=== PATIENT | female | born 1965 | race Caucasian/White ===

== ENCOUNTER 2017-02-09 22:13 | Emergency (ER) | payer MEDICAID ==
[2017-02-09 22:19] VITALS: BP 219/71; PULSE 53; RESP 16; TEMP 97.9; O2SAT 100
--- NOTE | 2017-02-09 23:00 | ED PDOC ---
HPI: General Adult Time Seen by Provider: 02/09/17 22:40 Chief Complaint (Nursing): Headache Chief Complaint (Provider): headahce, body aches, diarrhea, History Per: Patient History/Exam Limitations: no limitations Additional Complaint(s): 51yo F in ED for 1 week of diarrhea, body aches, headache congestion subjective fever chills. pt states he was seen at her pmd last week Rx abx, but not effective. denies foreign travel or rash denies blood diarrhea or productive cough. Past Medical History Reviewed: Historical Data, Nursing Documentation, Vital Signs Vital Signs: Last Vital Signs Temp 97.9 F 02/09/17 22:15 Pulse 53 L 02/09/17 22:15 Resp 16 02/09/17 22:15 BP 219/71 H 02/09/17 22:15 Pulse Ox 100 02/09/17 23:01 - Medical History PMH: Asthma, Gastritis, HTN, Hypothyroidism - Surgical History Surgical History: Cholecystectomy - Family History Family History: States: Diabetes, Hypertension - Home Medications Home Medications: Ambulatory Orders Medication Instructions Recorded Atenolol [Tenormin] 50 mg PO DAILY 08/22/15 Levothyroxine [Synthroid] 0.088 mg PO DAILY 08/22/15 Guaifenesin [Mucinex] 1,200 mg PO BID #14 ter 02/09/17 - Allergies Allergies/Adverse Reactions: Allergies Allergy/AdvReac Type Severity Reaction Status Date / Time No Known Allergies Allergy Verified 02/09/17 22:15 Review of Systems ROS Statement: Except As Marked, All Systems Reviewed And Found Negative Constitutional: Positive for: Fever, Chills ENT: Positive for: Nose Discharge, Nose Congestion Respiratory: Positive for: Cough Gastrointestinal: Positive for: Abdominal Pain, Diarrhea. Negative for: Nausea , Vomiting Physical Exam - Reviewed Nursing Documentation Reviewed: Yes Vital Signs Reviewed: Yes - Physical Exam Appears: Positive for: Non-toxic, No Acute Distress Head Exam: Positive for: ATRAUMATIC, NORMAL INSPECTION, NORMOCEPHALIC Skin: Positive for: Normal Color, Warm, DRY Eye Exam: Positive for: EOMI, Normal appearance, PERRL ENT: Positive for: Normal ENT Inspection, TM Is/Are (NAD), Sinus Pain/Drainage. Negative for: Nasal Congestion, Pharyngeal Erythema, Tonsillar Exudate Neck: Positive for: Normal, Painless ROM Cardiovascular/Chest: Positive for: Regular Rate, Rhythm Respiratory: Positive for: CNT, Normal Breath Sounds Gastrointestinal/Abdominal: Positive for: Normal Exam, Bowel Sounds, Soft. Negative for: Tenderness, Organomegaly, Mass, Distended, Guarding Back: Positive for: Normal Inspection Extremity: Positive for: Normal ROM Neurologic/Psych: Positive for: Alert, Oriented - ECG O2 Sat by Pulse Oximetry: 100 - Progress ED Course And Treament: influ A/B testing impression: viral Medical Decision Making Medical Decision Making: pt with negative flu testing. pt most likely with viral process, however advised to continue supportive care. Rx mucinex for congestion. advised that abx use for viral illness will not help and may increased resistance pt understands. Disposition - Clinical Impression Clinical Impression: Viral syndrome - Patient ED Disposition Is Patient to be Admitted: No Counseled Patient/Family Regarding: Studies Performed, Diagnosis, Need For Followup, Rx Given - Disposition Disposition: Routine/Home Disposition Time: 23:03 Condition: STABLE Prescriptions: Guaifenesin [Mucinex] 1,200 mg PO BID #14 ter Instructions: Viral Syndrome (ED)
== END 2017-02-09 23:18 | disposition home or self-care (01) ==
LOC: H.ER 22:13
DX: B34.9 Viral infection, unspecified (principal); E03.9 Hypothyroidism, unspecified; I10 Essential (primary) hypertension

== ENCOUNTER 2017-07-12 00:12 | Emergency (ER) | payer MEDICAID ==
[2017-07-12 00:47] VITALS: BP 157/93; PULSE 54; RESP 18; TEMP 98.6; O2SAT 98
--- NOTE | 2017-07-12 01:01 | ED PDOC ---
Upper Extremity Pain/Injury Time Seen by Provider: 07/12/17 00:48 Chief Complaint (Nursing): Upper Extremity Problem/Injury Chief Complaint (Provider): Left shoulder pain History Per: Patient Additional Complaint(s): 52-year-old right hand dominant female presents to emergency department with left shoulder pain for 1 month. Patient states she's been taking ibuprofen and muscle relaxer but pain has not improved. She denies any associated chest pain. Pain got worse today prompting ED visit this evening. The patient denies any fever or chills. She does not recall any injury. Past Medical History Reviewed: Historical Data, Nursing Documentation, Vital Signs Vital Signs: Last Vital Signs Temp 98.6 F 07/12/17 00:31 Pulse 54 L 07/12/17 00:31 Resp 18 07/12/17 00:31 BP 157/93 H 07/12/17 00:31 Pulse Ox 98 07/12/17 00:31 - Medical History PMH: Asthma, Gastritis, HTN, Hypothyroidism - Surgical History Surgical History: Cholecystectomy - Family History Family History: States: Diabetes, Hypertension - Living Arrangements Living Arrangements: With Family - Social History Current smoker - smoking cessation education provided: No Alcohol: None Drugs: Denies - Home Medications Home Medications: Ambulatory Orders Medication Instructions Recorded Atenolol [Tenormin] 50 mg PO DAILY 08/22/15 Levothyroxine [Synthroid] 0.088 mg PO DAILY 08/22/15 Dextromethorphan HBr [Cough 15 mg PO BID #15 capsule 02/09/17 Control] Guaifenesin [Mucinex] 1,200 mg PO BID #14 ter 02/09/17 Metaxalone [Skelaxin] 800 mg PO TID PRN #15 tablet 07/12/17 Naproxen [Naprosyn] 500 mg PO BID #20 tab 07/12/17 traMADol [Ultram] 50 mg PO TID PRN #15 tab 07/12/17 - Allergies Allergies/Adverse Reactions: Allergies Allergy/AdvReac Type Severity Reaction Status Date / Time No Known Allergies Allergy Verified 02/09/17 22:15 Review of Systems ROS Statement: Except As Marked, All Systems Reviewed And Found Negative Constitutional: Negative for: Fever Cardiovascular: Negative for: Chest Pain Respiratory: Negative for: Cough Gastrointestinal: Negative for: Nausea, Vomiting Musculoskeletal: Positive for: Other (left shoulder pain x 1 month) Physical Exam - Reviewed Nursing Documentation Reviewed: Yes Vital Signs Reviewed: Yes - Physical Exam Appears: Positive for: Well Skin: Negative for: Rash Eye Exam: Positive for: Normal appearance, EOMI, PERRL Neck: Positive for: Normal, Painless ROM Cardiovascular/Chest: Positive for: Regular Rate, Rhythm Respiratory: Positive for: Normal Breath Sounds Back: Negative for: Vertebral Tenderness Extremity: Positive for: Other (Diffuse tenderness to left anterior shoulder, full range of motion with pain, 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 Sling applied to left arm. Patient was provided with ortho referral. Disposition - Clinical Impression Clinical Impression: Shoulder pain - Patient ED Disposition Is Patient to be Admitted: No Counseled Patient/Family Regarding: Studies Performed, Diagnosis, Need For Followup, Rx Given - Disposition Referrals: Selvin Marc MD [Family Provider] - Elliott Prince MD [Medical Doctor] - Disposition: Routine/Home Disposition Time: 02:29 Condition: STABLE Additional Instructions: Take rx meds as directed as needed for pain. Follow up with primary care doctor or orthopedist. Prescriptions: Metaxalone [Skelaxin] 800 mg PO TID PRN #15 tablet PRN Reason: Muscle Pain Naproxen [Naprosyn] 500 mg PO BID #20 tab traMADol [Ultram] 50 mg PO TID PRN #15 tab PRN Reason: Pain, Moderate (4-7) Instructions: Shoulder Pain (ED) Forms: [employer] (Jamaican)
--- NOTE | 2017-07-12 09:24 | RAD ---
PROCEDURE: Radiographs of the Left Shoulder HISTORY: pain for 1 month COMPARISON: No prior. FINDINGS: BONES: Normal. No fracture. JOINTS: Normal. Glenohumeral and acromioclavicular joints preserved. No osteoarthritis. SOFT TISSUES: Normal. OTHER FINDINGS: None. IMPRESSION: No evidence of acute displaced fracture nor dislocation.
--- NOTE | 2017-07-12 20:52 | CARD ---
APPROVED REPORT EKG Measurement Heart [id number] ID [id number] <Conclusion> Sinus bradycardia Otherwise normal ECG
== END 2017-07-12 02:59 | disposition home or self-care (01) ==
LOC: H.ER 00:12
DX: M25.512 Pain in left shoulder (principal)
CPT/HCPCS: 73030; 93005; 96372; 99284; J1885

== ENCOUNTER 2017-12-25 19:41 | Emergency (ER) | payer MEDICAID ==
[2017-12-25] MEDS ORDERED: Albuterol-Ipratrop 3 mg / 0.5 (3 ml) UD ONE (20:38)
[2017-12-25] MEDS: Albuterol-Ipratrop 3 mg / 0.5 (3 ml) UD IH SCH (20:55)
[2017-12-25 21:10] VITALS: RESP 20
--- NOTE | 2017-12-25 21:34 | ED PDOC ---
HPI: General Adult Time Seen by Provider: 12/25/17 20:18 Chief Complaint (Nursing): Flu-like Symptoms History Per: Patient Onset/Duration Of Symptoms: Days Have you had recent travel within the past 21 days to any of the following countries: [place], [place], [place] or [place]?: No Current Symptoms Are (Timing): Still Present Additional Complaint(s): 52 yo F w/ PMH of HTN and asthma, complains of cough productive, beginning three days ago and associated with body aches, and wheezing. Of note, she has a history of Asthma and has been using her inhaler at home. Patient was seen by her PMD today, and Rx Keflex, but wanted to seek further evaluation here due to continued symptoms. Otherwise: (-) fever, (-) chills, (-) chest pain, (-) dyspnea, (-) hemoptysis, (-) upper back pain, (-) travel, (-) recent prolonged immobility. Past Medical History Vital Signs: Last Vital Signs Temp 98 F 12/25/17 21:09 Pulse 58 L 12/25/17 21:09 Resp 20 12/25/17 21:09 BP 134/80 12/25/17 21:09 Pulse Ox 100 12/25/17 21:47 - Medical History PMH: Asthma, Gastritis, HTN, Hypothyroidism - Surgical History Surgical History: Cholecystectomy - Family History Family History: States: Diabetes, Hypertension - Home Medications Home Medications: Ambulatory Orders Medication Instructions Recorded Atenolol [Tenormin] 50 mg PO DAILY 08/22/15 Levothyroxine [Synthroid] 0.088 mg PO DAILY 08/22/15 Dextromethorphan HBr [Cough 15 mg PO BID #15 capsule 02/09/17 Control] Guaifenesin [Mucinex] 1,200 mg PO BID #14 ter 02/09/17 Metaxalone [Skelaxin] 800 mg PO TID PRN #15 tablet 07/12/17 Naproxen [Naprosyn] 500 mg PO BID #20 tab 07/12/17 traMADol [Ultram] 50 mg PO TID PRN #15 tab 07/12/17 Albuterol 0.083% [Albuterol 3 ml IH Q4 #100 neb 12/25/17 Sulfate 3 Ml] Azithromycin [Z-Thanh] 250 mg PO DAILY #6 tab 12/25/17 Guaifenesin 400 mg PO QID #20 tablet 12/25/17 predniSONE [predniSONE Tab] 40 mg PO DAILY #8 tab 12/25/17 - Allergies Allergies/Adverse Reactions: Allergies Allergy/AdvReac Type Severity Reaction Status Date / Time No Known Allergies Allergy Verified 02/09/17 22:15 Review of Systems Constitutional: Negative for: Fever Respiratory: Positive for: Cough, Wheezing Musculoskeletal: Positive for: Other (bodyaches) Physical Exam - Physical Exam Comments: GENERAL APPEARANCE : Patient is awake, alert, oriented x3, in no acute distress. Speaking in full sentences. SKIN: Warm, dry; (-) cyanosis. EYES: (-) conjunctival pallor. ENMT: Mucous membranes moist. Airway patent: (-) stridor. Pharynx: (-) swelling, (-) erythema, (-) exudate. NECK: (-) tenderness, (-) stiffness, (-) lymphadenopathy. CHEST AND RESPIRATORY: (+) scattered rhonchi, (-) rales, (+) b/l expiratory wheezes, (-) pleural rub; breath sounds equal bilaterally. HEART AND CARDIOVASCULAR: (-) irregularity; (-) murmur, (-) gallop. ABDOMEN AND GI: Soft; (-) tenderness. EXTREMITIES: (-) deformity; (-) edema. NEURO AND PSYCH: Mental status as above. Cranial nerves grossly intact; strength symmetric. - ECG O2 Sat by Pulse Oximetry: 100 (RA) Pulse Ox Interpretation: Normal Medical Decision Making Medical Decision Making: CXR : NAD, as read by PA On re-evaluation, patient reports improvement of symptoms, denies any chest pain or SOB at this time. On exam, patient remains AAOx3, in no acute distress. Lungs clear to auscultation, cardiac RRR. Diagnostic results d/w the patient in great detail. Diagnosis of bronchitis and asthma d/w the patient. Based on history, exam and diagnostic results, plan will be for outpatient follow up. Patient instructed to follow-up with pmd in 1-2 days without fail. Advised to take medication as prescribed. Return to the emergency room at any time for any new or worsening symptoms. Patient states she fully agrees with and understands discharge instructions. States that she agrees with the plan and disposition. Verbalized and repeated discharge instructions and plan. I have given the patient opportunity to ask any additional questions. Scribe Attestation: Documented by Colette Stewart, acting as a scribe for Mary Jo Puente PA-C. Provider Scribe Attestation: All medical record entries made by the Scribe were at my direction and personally dictated by me. I have reviewed the chart and agree that the record accurately reflects my personal performance of the history, physical exam, medical decision making, and the department course for this patient. I have also personally directed, reviewed, and agree with the discharge instructions and disposition. Disposition - Clinical Impression Clinical Impression: Asthma exacerbation, Bronchitis - Patient ED Disposition Is Patient to be Admitted: No Counseled Patient/Family Regarding: Studies Performed, Diagnosis, Need For Followup, Rx Given - Disposition Disposition: Routine/Home Disposition Time: 22:00 Condition: IMPROVED Additional Instructions: Thank you for letting us take care of you today. You were treated for bronchitis and asthma. The emergency medical care you received today was directed at your acute symptoms. If you were prescribed any medication, please fill it and take as directed. It may take several days for your symptoms to resolve. Return to the Emergency Department if your symptoms worsen, do not improve, or if you have any other problems. Please contact your doctor in 2 days for re-evaluation and follow up. Bring any paperwork you were given at discharge with you along with any medications you are taking to your follow up visit. Our treatment cannot replace ongoing medical care by a primary care provider (PCP) outside of the emergency department. Thank you for allowing the [facility] team to be part of your care today. If you had an X-Ray : A Radiologist will review the ED reading if any change in treatment is needed we will contact you. Prescriptions: Albuterol 0.083% [Albuterol Sulfate 3 Ml] 3 ml IH Q4 #100 neb Azithromycin [Z-Thanh] 250 mg PO DAILY #6 tab Guaifenesin 400 mg PO QID #20 tablet predniSONE [predniSONE Tab] 40 mg PO DAILY #8 tab Instructions: Acute Bronchitis, Asthma, Adult (DC) Forms: [employer] (Turkish) - PA / INTELLIGENCE CHIEF / Resident Statement MD/DO has reviewed & agrees with the documentation as recorded.
[2017-12-25 22:30] VITALS: BP 130/70; PULSE 65; TEMP 98; O2SAT 97
--- NOTE | 2017-12-26 08:50 | RAD ---
HISTORY: cough COMPARISON: Chest radiograph dated 11/03/2014. TECHNIQUE: Chest PA and lateral FINDINGS: LUNGS: No active pulmonary disease. PLEURA: No significant pleural effusion identified. No pneumothorax apparent. CARDIOVASCULAR: Normal. OSSEOUS STRUCTURES: Unchanged. VISUALIZED UPPER ABDOMEN: Normal. OTHER FINDINGS: None. IMPRESSION: No active disease.
== END 2017-12-25 22:30 | disposition home or self-care (01) ==
LOC: H.ER 19:41
DX: J45.901 Unspecified asthma with (acute) exacerbation (principal); J40 Bronchitis, not specified as acute or chronic; I10 Essential (primary) hypertension; E03.9 Hypothyroidism, unspecified

== ENCOUNTER 2018-03-10 09:38 | Observation (INO) | payer MEDICAID, OTHER ==
[2018-03-10] MEDS ORDERED: Albuterol-Ipratrop 3 mg / 0.5 (3 ml) UD INH STA (10:27)
--- NOTE | 2018-03-10 11:18 | RAD ---
HISTORY: SOB COMPARISON: Chest radiograph dated 12/25/2017 TECHNIQUE: Chest PA and lateral FINDINGS: LUNGS: No active pulmonary disease. PLEURA: No significant pleural effusion identified. No pneumothorax apparent. CARDIOVASCULAR: Normal. OSSEOUS STRUCTURES: Unchanged. VISUALIZED UPPER ABDOMEN: Right upper quadrant surgical clips. OTHER FINDINGS: None. IMPRESSION: No active disease.
[2018-03-10] MEDS ORDERED: Albuterol-Ipratrop 3 mg / 0.5 (3 ml) UD ONE (11:37)
[2018-03-10 12:04] LABS: BASO # 0.1 K/uL (0.0-0.2); BASO % 0.7 % (0.0-2.0); EOS # 0.2 K/uL (0.0-0.7); EOS % 2.2 % (0.0-4.0); HEMOGLOBIN 14.9 g/dL (12.0-16.0); LYMPH # 1.2 K/uL (1.0-4.3); LYMPH % 13.7 % (20.0-40.0); MEAN CELL VOLUME 83.4 fl (81.0-99.0); MEAN CORPUSCULAR HEMOGLOBIN 29.1 pg (27.0-31.0); MEAN CORPUSCULAR HGB CONC 34.9 g/dL (33.0-37.0); MEAN PLATELET VOLUME 7.5 fl (7.2-11.7); MONO # 0.8 K/uL (0.0-0.8); NEUT # 6.3 K/uL (1.8-7.0); NEUT % 73.4 % (50.0-75.0); RBC 5.12 Mil/uL (3.80-5.20); RED CELL DISTRIBUTION WIDTH 12.7 % (11.5-14.5); WHITE BLOOD COUNT 8.5 K/uL (4.8-10.8)
[2018-03-10 12:19] LABS: ALB/GLOB RATIO 1.2 (1.0-2.1); ALBUMIN 4.7 g/dL (3.5-5.0); CALCIUM 9.5 mg/dL (8.4-10.2); GFR AFRICAN-AMERICAN > 60; GFR NON-AFRICAN AMERICAN > 60
[2018-03-10 12:31] LABS: B-TYPE NATRIURETIC PEPTIDE 38.6 pg/ml (0-900)
[2018-03-10 12:35] LABS: ALT/SGPT 33 U/L (9-52); AST/SGOT 28 U/L (14-36); BLOOD UREA NITROGEN 20 mg/dl (7-17)
--- NOTE | 2018-03-10 12:59 | ED PDOC ---
HPI: Asthma Time Seen by Provider: 03/10/18 10:15 Chief Complaint (Nursing): Cough, Cold, Congestion Chief Complaint (Provider): SOb History Per: Patient History/Exam Limitations: no limitations Onset/Duration Of Symptoms: Days (3) Current Symptoms Are (Timing): Still Present Associated Symptoms: Dyspnea, Cough, Chest Pain Precipitating Factors: Weather Change Severity: Severe Additional Complaint(s): 52yo female c/o chest tightness associated with SOB, wheeze, cough and mild respiratory distress. Been using oral inhaled steroid and albuterol without much relief. Denies fever, syncope, edema or orthopnea. Nonsmoker. Past Medical History Reviewed: Historical Data, Nursing Documentation, Vital Signs Vital Signs: Last Vital Signs Temp 98.8 F 03/10/18 10:05 Pulse 76 03/10/18 10:05 Resp 20 03/10/18 10:05 BP 130/70 03/10/18 10:05 Pulse Ox 98 03/10/18 10:05 - Medical History PMH: Asthma, Gastritis, HTN, Hypothyroidism - Surgical History Surgical History: Cholecystectomy - Family History Family History: States: Diabetes, Hypertension - Living Arrangements Living Arrangements: With Family - Social History Current smoker - smoking cessation education provided: No - Home Medications Home Medications: Ambulatory Orders Medication Instructions Recorded Atenolol [Tenormin] 50 mg PO DAILY 08/22/15 Levothyroxine [Synthroid] 0.088 mg PO DAILY 08/22/15 Dextromethorphan HBr [Cough 15 mg PO BID #15 capsule 02/09/17 Control] Guaifenesin [Mucinex] 1,200 mg PO BID #14 ter 02/09/17 Metaxalone [Skelaxin] 800 mg PO TID PRN #15 tablet 07/12/17 Naproxen [Naprosyn] 500 mg PO BID #20 tab 07/12/17 traMADol [Ultram] 50 mg PO TID PRN #15 tab 07/12/17 Albuterol 0.083% [Albuterol 3 ml IH Q4 #100 neb 12/25/17 Sulfate 3 Ml] Azithromycin [Z-Thanh] 250 mg PO DAILY #6 tab 12/25/17 Guaifenesin 400 mg PO QID #20 tablet 12/25/17 predniSONE [predniSONE Tab] 40 mg PO DAILY #8 tab 12/25/17 - Allergies Allergies/Adverse Reactions: Allergies Allergy/AdvReac Type Severity Reaction Status Date / Time No Known Allergies Allergy Verified 03/10/18 10:04 Review of Systems Constitutional: Negative for: Fever Eyes: Negative for: Vision Change ENT: Negative for: Throat Pain Respiratory: Positive for: Cough, Shortness of Breath, SOB with Exertion, Wheezing. Negative for: Sputum Gastrointestinal: Negative for: Abdominal Pain Genitourinary Female: Negative for: Dysuria Musculoskeletal: Negative for: Neck Pain Skin: Negative for: Rash, Lesions Neurological: Negative for: Weakness, Numbness, Headache Psych: Negative for: Anxiety Physical Exam - Reviewed Nursing Documentation Reviewed: Yes Vital Signs Reviewed: Yes - Physical Exam Appears: Positive for: Well, Non-toxic, No Acute Distress Head Exam: Positive for: ATRAUMATIC, NORMAL INSPECTION, NORMOCEPHALIC Skin: Positive for: Normal Color, Warm, DRY Eye Exam: Positive for: EOMI, Normal appearance, PERRL ENT: Positive for: Normal ENT Inspection Neck: Positive for: Normal, Painless ROM Cardiovascular/Chest: Positive for: Regular Rate, Rhythm Respiratory: Positive for: Decreased Breath Sounds, Wheezing, Respiratory Distress (mild) Gastrointestinal/Abdominal: Positive for: Normal Exam, Soft. Negative for: Tenderness Back: Positive for: Normal Inspection Extremity: Positive for: Normal ROM Neurologic/Psych: Positive for: Alert, Oriented. Negative for: Motor/Sensory Deficits - Laboratory Results Result Diagrams: 03/10/18 11:45 03/10/18 11:45 - ECG ECG: Positive for: Interpreted By Ut ECG Rhythm: Positive for: Normal ST Segment, Sinus Rhythm Rate: 89 O2 Sat by Pulse Oximetry: 98 Pulse Ox Interpretation: Normal - Radiology X-Ray: Interpreted by Ut X-Ray Interpretation: No Acute Disease Medical Decision Making Medical Decision Making: workup for asthma exacerbation w mild resp distress and failure outpatient treatment duonebs given, solumedrol given labs reviewed revealing mild hypokalemia likely sec to albuterol CXR no acute infiltrate per my read Re-eval 2hrs into ED visit reveals persistent wheeze and tachypnea RR 24, will place Obs to Dr Angel for workup and resp stabilization Disposition - Clinical Impression Clinical Impression: Asthma exacerbation, Respiratory distress - Patient ED Disposition Is Patient to be Admitted: Yes Counseled Patient/Family Regarding: Studies Performed, Diagnosis, Need For Followup - Disposition Disposition Time: 12:20 Condition: FAIR - Pt Status Changed To: Hospital Disposition Of: Observation - POA Present On Arrival: None
--- NOTE | 2018-03-10 18:38 | CARD ---
APPROVED REPORT EKG Measurement Heart [id number] <Conclusion> Normal sinus rhythm Normal ECG
[2018-03-10] MEDS: Albuterol-Ipratrop 3 mg / 0.5 (3 ml) UD INH SCH ×2 (19:19→23:43)
[2018-03-10] MEDS ORDERED: Pneumococcal 23-Valent Vaccine IM ONE (21:00)
[2018-03-10] MEDS: Promethazine DM 6.25 mg-15 mg/5 ml Syrup PO SCH (21:43)
[2018-03-11] MEDS: Promethazine DM 6.25 mg-15 mg/5 ml Syrup PO SCH ×4 (04:33→21:44)
[2018-03-11] MEDS: Albuterol-Ipratrop 3 mg / 0.5 (3 ml) UD INH SCH ×5 (05:13→19:29)
[2018-03-11 05:42] LABS: HEMOGLOBIN 14.2 g/dL (12.0-16.0); MEAN CELL VOLUME 84.6 fl (81.0-99.0); MEAN CORPUSCULAR HEMOGLOBIN 28.7 pg (27.0-31.0); MEAN CORPUSCULAR HGB CONC 33.9 g/dL (33.0-37.0); RBC 4.94 Mil/uL (3.80-5.20); RED CELL DISTRIBUTION WIDTH 12.5 % (11.5-14.5); WHITE BLOOD COUNT 6.9 K/uL (4.8-10.8)
[2018-03-11 06:16] LABS: ALB/GLOB RATIO 1.3 (1.0-2.1); ALBUMIN 4.5 g/dL (3.5-5.0); ALT/SGPT 29 U/L (9-52); AST/SGOT 23 U/L (14-36); BLOOD UREA NITROGEN 26 mg/dl (7-17); GFR AFRICAN-AMERICAN > 60; GFR NON-AFRICAN AMERICAN > 60
[2018-03-11] MEDS ORDERED: Potassium Chloride 20 mEq ER Tab PO ONE (07:59)
[2018-03-11] MEDS: Levothyroxine 88 MCG TAB PO SCH (09:18)
[2018-03-11] MEDS: Pantoprazole 40 mg EC Tab PO SCH (09:18)
--- NOTE | 2018-03-11 09:59 | CP.PCM.HP ---
Past Patient History - Past Medical History & Family History Past Medical History?: Yes - Past Social History Smoking Status: Former Smoker - CARDIAC Hx Hypertension: Yes - PULMONARY Hx Asthma: Yes - NEUROLOGICAL Hx Neurological Disorder: No - HEENT Hx HEENT Problems: No - ENDOCRINE/METABOLIC Hx Hypothyroidism: Yes - HEMATOLOGICAL/ONCOLOGICAL Hx Blood Disorders: No - INTEGUMENTARY Hx Dermatological Problems: No - MUSCULOSKELETAL/RHEUMATOLOGICAL Hx Musculoskeletal Disorders: No Hx Falls: No - GASTROINTESTINAL Hx Gastritis: Yes - GENITOURINARY/GYNECOLOGICAL Hx Genitourinary Disorders: No - PSYCHIATRIC Hx Psychophysiologic Disorder: No Hx Emotional Abuse: No Hx Physical Abuse: No Hx Substance Use: No - SURGICAL HISTORY Hx Cholecystectomy: Yes Hx Tonsillectomy: Yes - ANESTHESIA Hx Anesthesia: Yes Hx Anesthesia Reactions: No Meds Allergies/Adverse Reactions: Allergies Allergy/AdvReac Type Severity Reaction Status Date / Time No Known Allergies Allergy Verified 03/10/18 10:04 Results - Vital Signs Recent Vital Signs: Last Vital Signs Temp 98.0 F 03/11/18 07:58 Pulse 95 H 03/11/18 09:16 Resp 20 03/11/18 07:58 BP 124/80 03/11/18 09:16 Pulse Ox 99 03/11/18 07:58 - Labs Result Diagrams: 03/11/18 04:20 03/11/18 04:20 Labs: Laboratory Results - last 24 hr 03/10/18 03/10/18 03/11/18 11:45 11:45 04:20 WBC 8.5 6.9 RBC 5.12 4.94 Hgb 14.9 14.2 Hct 42.7 41.8 MCV 83.4 D 84.6 MCH 29.1 28.7 MCHC 34.9 33.9 RDW 12.7 12.5 Plt Count 262 292 MPV 7.5 Neut % (Auto) 73.4 Lymph % (Auto) 13.7 L [place] % (Auto) 10.0 Eos % (Auto) 2.2 Baso % (Auto) 0.7 Neut # (Auto) 6.3 Lymph # (Auto) 1.2 [place] # (Auto) 0.8 Eos # (Auto) 0.2 Baso # (Auto) 0.1 Sodium 135 Potassium 3.5 L Chloride 94 L Carbon Dioxide 28 Anion Gap 17 BUN 20 H Creatinine 0.6 L Est GFR ( Amer) > 60 Est GFR (Non-Af Amer) > 60 Random Glucose 123 H Calcium 9.5 Total Bilirubin 0.9 AST 28 ALT 33 Alkaline Phosphatase 73 Troponin I 0.0190 NT-Pro-B Natriuret Pep 38.6 Total Protein 8.4 H Albumin 4.7 Globulin 3.8 Albumin/Globulin Ratio 1.2 03/11/18 04:20 WBC RBC Hgb Hct MCV MCH MCHC RDW Plt Count MPV Neut % (Auto) Lymph % (Auto) [place] % (Auto) Eos % (Auto) Baso % (Auto) Neut # (Auto) Lymph # (Auto) [place] # (Auto) Eos # (Auto) Baso # (Auto) Sodium 138 Potassium 3.0 L Chloride 93 L Carbon Dioxide 28 Anion Gap 20 BUN 26 H Creatinine 0.7 Est GFR ( Amer) > 60 Est GFR (Non-Af Amer) > 60 Random Glucose 248 H Calcium 10.0 Total Bilirubin 0.6 AST 23 ALT 29 Alkaline Phosphatase 72 Troponin I NT-Pro-B Natriuret Pep Total Protein 8.1 Albumin 4.5 Globulin 3.6 Albumin/Globulin Ratio 1.3
[2018-03-11] MEDS ORDERED: methylPREDNISolone 40 MG in Sodium Chloride 0.9% 50 ML IV SCH (11:45)
[2018-03-11] MEDS: MethylPREDNISolone 40 mg Vial IVP SCH ×2 (12:41→17:25)
--- NOTE | 2018-03-11 13:20 | CP.PCM.PN ---
Subjective - Date & Time of Evaluation Date of Evaluation: 03/11/18 Time of Evaluation: 07:20 - Subjective Subjective: Patient seen and examined bedside with Dr Angel. Patient report feeling well. denies SOB, wheezing, cough. Patient reports Asthma started 1 year ago, and denies Fhx/o asthma or asthma when a child. Patient has been taking betablocker. will reduce solumedrol and possible discharge tomorrow. Objective - Vital Signs/Intake and Output Vital Signs (last 24 hours): Temp Pulse Resp BP Pulse Ox 97.5 F L 100 H 20 110/70 99 03/11/18 12:18 03/11/18 12:18 03/11/18 12:18 03/11/18 12:18 03/11/18 12:18 - Medications Medications: Current Medications Acetaminophen (Tylenol 325mg Tab) 650 mg PO Q4 PRN PRN Reason: Pain, moderate (4-7) Last Admin: 03/10/18 20:27 Dose: 650 mg Albuterol/Ipratropium (Duoneb 3 Mg/0.5 Mg (3 Ml) Ud) 3 ml INH RQ4 LAMAR Last Admin: 03/11/18 07:48 Dose: 3 ml Levothyroxine Sodium (Synthroid) 88 mcg PO ACB LAMAR Last Admin: 03/11/18 09:18 Dose: 88 mcg Losartan Potassium (Cozaar) 50 mg PO DAILY LAMAR Last Admin: 03/11/18 09:16 Dose: 50 mg Methylprednisolone (Solu-Medrol) 40 mg IVP Q8 LAMAR Last Admin: 03/11/18 12:41 Dose: 40 mg Pantoprazole Sodium (Protonix Ec Tab) 40 mg PO DAILY LAMAR Last Admin: 03/11/18 09:18 Dose: 40 mg Promethazine HCl/Dextromethorphan (Phenergan Dm Syrup) 5 ml PO Q6 LAMAR Last Admin: 03/11/18 09:17 Dose: 5 ml - Labs Labs: 03/11/18 04:20 03/11/18 04:20 - Constitutional Appears: Non-toxic, No Acute Distress - Head Exam Head Exam: ATRAUMATIC, NORMOCEPHALIC - Eye Exam Eye Exam: Normal appearance - ENT Exam ENT Exam: Mucous Membranes Moist - Neck Exam Neck Exam: Normal Inspection - Respiratory Exam Respiratory Exam: Clear to Ausculation Bilateral. absent: Rhonchi, Wheezes - Cardiovascular Exam Cardiovascular Exam: REGULAR RHYTHM, +S1, +S2 - GI/Abdominal Exam GI & Abdominal Exam: Soft, Normal Bowel Sounds. absent: Tenderness - Extremities Exam Extremities Exam: Normal Capillary Refill, Normal Inspection. absent: Tenderness - Back Exam Back Exam: NORMAL INSPECTION - Neurological Exam Neurological Exam: Alert, Awake, Oriented x3 - Psychiatric Exam Psychiatric exam: Normal Affect, Normal Mood - Skin Skin Exam: Intact Assessment and Plan - Assessment and Plan (Free Text) Plan: 52 yo f, PMhx/o Asthma, HTN admitted for acute asthma exacerbation 1) Acute asthma Exacerbation -may be secondary to medications ( atenolol - no fhx/o Asthma no asthma in childhood -CXR no infiltrates -c/w duoneb q 4h PRN SOb -s/p solumedrol 125 mg IV -Solumedrol 20 mg IV Q 12 2) HTN -Dc Atenolol -Lozartan 50 mg daily 3) levothyroxin -c/w home medications 4) DVT prophylaxis -Lovenox 40 mg sc daily
[2018-03-11] MEDS: Enoxaparin 40 mg Syringe SC SCH (17:24)
[2018-03-12] MEDS: Albuterol-Ipratrop 3 mg / 0.5 (3 ml) UD INH SCH ×4 (00:24→11:05)
[2018-03-12 00:49] VITALS: RESP 18
[2018-03-12] MEDS: MethylPREDNISolone 40 mg Vial IVP SCH ×2 (01:56→09:01)
[2018-03-12] MEDS: Promethazine DM 6.25 mg-15 mg/5 ml Syrup PO SCH ×2 (04:56→09:00)
[2018-03-12 05:51] LABS: HEMOGLOBIN 12.8 g/dL (12.0-16.0); MEAN CORPUSCULAR HEMOGLOBIN 28.9 pg (27.0-31.0); RBC 4.44 Mil/uL (3.80-5.20); RED CELL DISTRIBUTION WIDTH 12.3 % (11.5-14.5); WHITE BLOOD COUNT 19.8 K/uL (4.8-10.8)
[2018-03-12] MEDS: Levothyroxine 88 MCG TAB PO SCH ×2 (06:25→08:58)
[2018-03-12 06:26] LABS: BLOOD UREA NITROGEN 48 mg/dl (7-17); CALCIUM 9.4 mg/dL (8.4-10.2); GFR AFRICAN-AMERICAN > 60; GFR NON-AFRICAN AMERICAN 58
[2018-03-12] MEDS: Enoxaparin 40 mg Syringe SC SCH (09:00)
[2018-03-12] MEDS: Pantoprazole 40 mg EC Tab PO SCH (09:00)
[2018-03-12] MEDS ORDERED: Potassium Chloride 20 mEq ER Tab PO ONE (10:38)
--- NOTE | 2018-03-12 11:19 | CP.PCM.DIS ---
Provider - Provider Date of Admission: 03/10/18 12:53 Attending physician: Brice Angel MD Time Spent in preparation of Discharge (in minutes): 20 Diagnosis - Discharge Diagnosis (1) Asthma exacerbation Status: Resolved Comment: - may be secondary to Atenolol use (2) Hypertension Status: Chronic Comment: -Discontinued Atenolol. -Started on Lozartan 50 mg daily (3) Hypothyroidism Status: Chronic Comment: -continue home medication Hospital Course - Lab Results Lab Results: Most Recent Lab Values WBC 19.8 K/uL (4.8-10.8) H D 03/12/18 05:40 RBC 4.44 Mil/uL (3.80-5.20) 03/12/18 05:40 Hgb 12.8 g/dL (12.0-16.0) 03/12/18 05:40 Hct 37.7 % (34.0-47.0) 03/12/18 05:40 MCV 85.0 fl (81.0-99.0) 03/12/18 05:40 MCH 28.9 pg (27.0-31.0) 03/12/18 05:40 MCHC 34.0 g/dL (33.0-37.0) 03/12/18 05:40 RDW 12.3 % (11.5-14.5) 03/12/18 05:40 Plt Count 282 K/uL (130-400) 03/12/18 05:40 MPV 7.5 fl (7.2-11.7) 03/10/18 11:45 Neut % (Auto) 73.4 % (50.0-75.0) 03/10/18 11:45 Lymph % (Auto) 13.7 % (20.0-40.0) L 03/10/18 11:45 [place] % (Auto) 10.0 % (0.0-10.0) 03/10/18 11:45 Eos % (Auto) 2.2 % (0.0-4.0) 03/10/18 11:45 Baso % (Auto) 0.7 % (0.0-2.0) 03/10/18 11:45 Neut # (Auto) 6.3 K/uL (1.8-7.0) 03/10/18 11:45 Lymph # (Auto) 1.2 K/uL (1.0-4.3) 03/10/18 11:45 [place] # (Auto) 0.8 K/uL (0.0-0.8) 03/10/18 11:45 Eos # (Auto) 0.2 K/uL (0.0-0.7) 03/10/18 11:45 Baso # (Auto) 0.1 K/uL (0.0-0.2) 03/10/18 11:45 Sodium 138 mmol/l (132-148) 03/12/18 05:40 Potassium 3.4 MMOL/L (3.6-5.0) L 03/12/18 05:40 Chloride 96 mmol/L (98-107) L 03/12/18 05:40 Carbon Dioxide 26 mmol/L (22-30) 03/12/18 05:40 Anion Gap 19 (10-20) 03/12/18 05:40 BUN 48 mg/dl (7-17) H 03/12/18 05:40 Creatinine 1.0 mg/dl (0.7-1.2) 03/12/18 05:40 Est GFR ( Amer) > 60 03/12/18 05:40 Est GFR (Non-Af Amer) 58 03/12/18 05:40 Random Glucose 336 mg/dL (65-105) H 03/12/18 05:40 Calcium 9.4 mg/dL (8.4-10.2) 03/12/18 05:40 Total Bilirubin 0.6 mg/dl (0.2-1.3) 03/11/18 04:20 AST 23 U/L (14-36) 03/11/18 04:20 ALT 29 U/L (9-52) 03/11/18 04:20 Alkaline Phosphatase 72 U/L (38-126) 03/11/18 04:20 Troponin I 0.0190 ng/mL (0.00-0.120) 03/10/18 11:45 NT-Pro-B Natriuret Pep 38.6 pg/ml (0-900) 03/10/18 11:45 Total Protein 8.1 G/DL (6.3-8.2) 03/11/18 04:20 Albumin 4.5 g/dL (3.5-5.0) 03/11/18 04:20 Globulin 3.6 gm/dL (2.2-3.9) 03/11/18 04:20 Albumin/Globulin Ratio 1.3 (1.0-2.1) 03/11/18 04:20 - Hospital Course Hospital Course: 52 yo f, PMhx/o Asthma, HTN, Hypothyroidism admitted for acute asthma exacerbation. Patient with significant improving with solumedrol and duoneb. Hemodynamically stable. No wheezing since admission. Patient medically cleared to be discharged. Atenolol was discontinued and switched to Lozartan. Asthma exacerbation may be also related to allergy component. Patient discharged with Claritin, Advair. F/u with Dr Winslow. Leukocytosis noted related to steroid use. Afebrile. CXR on admission normal. Discharge Exam - Head Exam Head Exam: ATRAUMATIC, NORMOCEPHALIC - Eye Exam Eye Exam: Normal appearance - ENT Exam ENT Exam: Mucous Membranes Moist - Respiratory Exam Respiratory Exam: Clear to PA & Lateral. absent: Rales, Rhonchi, Wheezes - Cardiovascular Exam Cardiovascular Exam: REGULAR RHYTHM, +S1, +S2 - GI/Abdominal Exam GI & Abdominal Exam: Normal Bowel Sounds, Soft. absent: Guarding, Rebound, Tenderness - Extremities Exam Extremities exam: normal inspection - Neurological Exam Neurological exam: Alert, Oriented x3 - Psychiatric Exam Psychiatric exam: Normal Affect, Normal Mood - Skin Skin Exam: Intact Discharge Plan - Discharge Medications Prescriptions: Fluticasone/Salmeterol 500/50 [Advair Diskus 500/50] 1 puff IH Q12 #5 dsk Loratadine [Claritin] 10 mg PO DAILY #30 tab - Follow Up Plan Condition: FAIR Disposition: HOME/ ROUTINE Instructions: Asthma, Adult (DC), Respiratory Distress Syndrome, Adult (DC) Additional Instructions: - follow up with Dr Winslow in 3 days Referrals: Brice Angel MD [Staff Provider] -
[2018-03-12 12:20] VITALS: BP 116/72; PULSE 100; TEMP 98; O2SAT 95
[2018-03-12] MEDS ORDERED: Fluticasone-Salmeterol 500-50mcg Diskus IH SCH (21:00)
== END 2018-03-12 14:49 | disposition home or self-care (01) ==
LOC: H.ER 09:38 → H.ERHOLD 12:53 → H.TEL 16:38
PROVIDERS: ADMIT Family Medicine; ATTEND Family Medicine
DX: J45.901 Unspecified asthma with (acute) exacerbation (principal); E87.6 Hypokalemia; E03.9 Hypothyroidism, unspecified; D72.828 Other elevated white blood cell count; I10 Essential (primary) hypertension; K29.70 Gastritis, unspecified, without bleeding; Z23 Encounter for immunization
CPT/HCPCS: 36415; 71046; 80053; 83880; 84484; 85025; 85027; 90732; 93005; 94150; 94640; 96374; 99282; G0009; J1650; J2920; J2930